=== PATIENT | female | born 1965 | race Caucasian/White ===

== ENCOUNTER 2016-07-19 11:00 | Outpatient (CLI) | payer MEDICAID | END 2016-07-19 11:01 | disposition home or self-care (01) | DX: Z79.899 Other long term (current) drug therapy (principal) ==

== ENCOUNTER 2016-08-26 15:43 | Outpatient (CLI) | payer MEDICAID | END 2016-08-26 15:44 | disposition home or self-care (01) | DX: S83.282A Other tear of lateral meniscus, current injury, left knee, initial encounter (principal); M17.11 Unilateral primary osteoarthritis, right knee; M25.462 Effusion, left knee ==

== ENCOUNTER 2016-11-03 09:24 | Day surgery (SDC) | payer MEDICAID ==
[2016-11-03] MEDS ORDERED: LACTATED RINGERS 1,000 ML IV ONE (09:32)
[2016-11-03] MEDS ORDERED: fentaNYL 250 MCG/5 ML VIAL IVP ONE (10:24)
[2016-11-03] MEDS ORDERED: MIDAZOLAM 2 MG/2 ML VIAL IVP ONE (10:24)
== END 2016-11-03 09:25 | disposition home or self-care (01) ==
PROC: 0DBN8ZX Excision of Sigmoid Colon, Via Natural or Artificial Opening Endoscopic, Diagnostic (ICD-10-PCS; 2016-11-03)
PROC: 0DBP8ZX Excision of Rectum, Via Natural or Artificial Opening Endoscopic, Diagnostic (ICD-10-PCS; principal; 2016-11-03 10:30)
DX: Z12.11 Encounter for screening for malignant neoplasm of colon (principal); D12.5 Benign neoplasm of sigmoid colon; D12.8 Benign neoplasm of rectum; K64.8 Other hemorrhoids; J45.909 Unspecified asthma, uncomplicated; M19.90 Unspecified osteoarthritis, unspecified site; K21.9 Gastro-esophageal reflux disease without esophagitis; F41.9 Anxiety disorder, unspecified; F17.210 Nicotine dependence, cigarettes, uncomplicated; G47.30 Sleep apnea, unspecified; Z81.1 Family history of alcohol abuse and dependence; Z81.8 Family history of other mental and behavioral disorders; Z83.3 Family history of diabetes mellitus; Z82.62 Family history of osteoporosis; Z82.3 Family history of stroke; Z82.49 Family history of ischemic heart disease and other diseases of the circulatory system
CPT/HCPCS: 45380; J3010; J7120

== ENCOUNTER 2017-02-14 08:53 | Outpatient (CLI) | payer MEDICAID | END 2017-02-14 08:54 | disposition home or self-care (01) | LOC: SC 08:53 | PROVIDERS: ATTEND Nurse Practitioner Family | DX: G47.33 Obstructive sleep apnea (adult) (pediatric) (principal); G47.00 Insomnia, unspecified | CPT/HCPCS: 99212; 99214 ==

== ENCOUNTER 2017-03-14 15:13 | Emergency (ER) | payer MEDICAID ==
[2017-03-14 15:23] VITALS: BP 148/96
--- NOTE | 2017-03-14 15:36 | ED Physician Documentation ---
PD HPI TRUNK INJURY - Stated complaint Stated Complaint: R RIB PX, SOA - Chief complaint Chief Complaint: General - History obtained from History obtained from: Patient - History of Present Illness Location: Right chest. No: Upper abdomen Type of injury: Fall (she says wooden stairs were wobbly and tilted as she went up them, causing her to fall to the right, about 3 feet onto chestwall. Denies injury to head/neck.) Timing - onset: Last night Timing - details: Abrupt onset, Still present Quality: Pain, Spasm, Sharp Improved by: Rest Worsened by: Moving, Palpating Associated symtptoms: No: Weakness, Numbness Contributing factors: No: Anticoagulated Similar symptoms before: Has not had sx before Recently seen: Not recently seen Review of Systems Cardiac: reports: Chest pain / pressure (in injured area.). denies: Palpitations Respiratory: reports: Dyspnea. denies: Cough Musculoskeletal: denies: Neck pain, Back pain Neurologic: reports: Other (she says she has had some balance problems the past few weeks.). 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 : None, Frequency HEENT: Other Psych: Depression, Anxiety, Panic attacks, Post traumatic stress disorder, Claustrophobia Musculoskeletal: Chronic back pain - Past Surgical History Past Surgical History: Yes Ortho: Spine surgery HEENT: Tonsil/Adenoidectomy - Present Medications Home Medications: Ambulatory Orders Medication Instructions Recorded Confirmed Albuterol [Ventolin Hfa] 1 puffs PO DAILY PRN 05/16/15 03/14/17 Fluticasone [Flonase] 1 sprays CLAUDE BID 05/16/15 03/14/17 Fluticasone/Salmeterol 250/50 1 puffs NS DAILY 05/16/15 03/14/17 [Advair 250 Mcg/50 Mcg] Omeprazole [PriLOSEC] 20 mg PO DAILY 05/16/15 03/14/17 Beclomethasone 40 Mcg [Qvar 40] 1 puffs PO DAILY PRN 11/02/16 03/14/17 Meloxicam [Mobic] 7.5 mg PO BID 11/02/16 03/14/17 Multivit with Calcium,Iron,Min 1 each PO DAILY 11/03/16 03/14/17 [Multiple Vitamins For Women] [place]-3S/Dha/Epa/Fish Oil [Fish 1 each PO DAILY 11/03/16 03/14/17 Oil 1,200 mg Softgel] HYDROcod/ACETAM 5/325 [[place] 5/325] 1 tab PO Q6H PRN #20 tablet 03/14/17 Magnesium 250 mg PO DAILY 03/14/17 03/14/17 Medical Mar[place]ana 03/14/17 Methocarbamol [Robaxin] 500 mg PO Q6H PRN #25 tablet 03/14/17 Quetiapine Fumarate [Seroquel] 0 mg PO DAILY 03/14/17 03/14/17 - Allergies Allergies/Adverse Reactions: Allergies Allergy/AdvReac Type Severity Reaction Status Date / Time amoxicillin trihydrate * Allergy Hives Verified 03/14/17 15:40 [From Augmentin] bupropion HCl * Allergy Hives Verified 03/14/17 15:40 [From Wellbutrin] carbamazepine [From Tegretol] Allergy Hives Verified 03/14/17 15:40 ciprofloxacin [From Cipro] Allergy Emesis Verified 03/14/17 15:40 ciprofloxacin HCl * Allergy Emesis Verified 03/14/17 15:40 [From Cipro] erythromycin base Allergy Hives Verified 03/14/17 15:40 minocycline HCl * Allergy Nausea Verified 03/14/17 15:40 [From Solodyn] potassium clavulanate * Allergy Hives Verified 03/14/17 15:40 [From Augmentin] - Social History Does the pt smoke?: Yes Smoking Status: Current every day smoker Does the pt drink ETOH?: Yes Does the pt have substance abuse?: No - Immunizations Immunizations are current?: Yes PD ED PE NORMAL - Vitals Vital signs reviewed: Yes - General General: Alert and oriented X 3, Well developed/nourished - HEENT HEENT: Atraumatic - Cardiac Cardiac: RRR, No murmur - Respiratory Respiratory: Clear bilaterally, Other (right lower chestwall tenderness midaxillary line without crepitance nor deformity. No noted bruising. ) - Abdomen Abdomen: Soft, Non tender - Back Back: No CVA TTP - Derm Derm: Normal color, Warm and dry - Neuro Neuro: Alert and oriented X 3, No motor deficit, Normal speech Results - Vitals Vitals: Vital Signs - 24 hr 03/14/17 15:17 Temperature 35.7 C L Heart Rate 91 Respiratory 18 Rate Blood Pressure 148/96 H O2 Saturation 97 Oxygen O2 Source Room air - Rads (name of study) ribs with lung Radiology: Prelim report reviewed, EMP read contemporaneously (no noted fractures) PD MEDICAL DECISION MAKING - ED course Complexity details: reviewed results, considered differential, d/w patient Departure - Departure Disposition: 01 Home, Self Care Clinical Impression: Fall from slip, trip, or stumble Qualifiers: Encounter type: initial encounter Qualified Code(s): W01.0XXA - Fall on same level from slipping, tripping and stumbling without subsequent striking against object, initial encounter Chest wall contusion Qualifiers: Encounter type: initial encounter Laterality: right Qualified Code(s): S20.211A - Contusion of right front wall of thorax, initial encounter Condition: Stable Record reviewed to determine appropriate education?: Yes Instructions: ED Contusion Chest Wall Follow-Up: Ayaka Anne ARNP [Primary Care Provider] - Prescriptions: HYDROcod/ACETAM 5/325 [[place] 5/325] 1 tab PO Q6H PRN #20 tablet PRN Reason: Pain Methocarbamol [Robaxin] 500 mg PO Q6H PRN #25 tablet PRN Reason: Spasms Comments: Continue usual medications. Activity as able based on comfort. Robaxin 3-4 times a day for muscle stiffness and spasms. Add Tylenol or hydrocodone as needed for pain. This presumably will decrease in pain over her several days to a week. There are no obvious rib fractures on x-ray although there can be a potential occult hairline fractures missed on plain films (about 2-5% in most studies). This would be treated in the same way but would take a little bit longer to heal. Discharge Date/Time: 03/14/17 17:51
[2017-03-14] MEDS ORDERED: oxyCOD/ACETAMIN 5 MG/325 MG TABLET PO STA (16:02)
[2017-03-14] MEDS ORDERED: oxyCOD/ACETAMIN 5 MG/325 MG TABLET PO ONE (16:20)
--- NOTE | 2017-03-14 16:57 | XRAY Preliminary Report ---
Exam: XR Ribs w/PA Chest RT IMPRESSION: No fracture or pneumothorax. [facility] SITE ID: [id number]
--- NOTE | 2017-03-14 17:00 | XRAY Report ---
EXAM: CHEST AND RIGHT RIB RADIOGRAPHY EXAM DATE: 03/14/2017 04:09 PM. CLINICAL HISTORY: Right rib pain COMPARISON: None. TECHNIQUE: 1 view of the chest and 2 views of the ribs. FINDINGS: Bones: Normal. No fracture or bone lesion. Lungs: No focal opacities. No pneumothorax. No pleural effusions. Mediastinum: Heart size is normal. Trachea is midline. Other: None. IMPRESSION: No fracture or pneumothorax. [facility] Referring Provider Line: [phone] SITE ID: [id number]
[2017-03-14] MEDS ORDERED: KETOROLAC 60 MG/2 ML VIAL IM STA (17:08)
[2017-03-14] MEDS ORDERED: diazePAM 5 MG TABLET PO STA (17:09)
[2017-03-14] MEDS ORDERED: KETOROLAC 30 MG/ML VIAL ONE (17:33)
[2017-03-14] MEDS ORDERED: diazePAM 5 MG TABLET PO ONE (17:33)
== END 2017-03-14 17:51 | disposition home or self-care (01) ==
LOC: ED 15:13
DX: S20.211A Contusion of right front wall of thorax, initial encounter (principal); W10.9XXA Fall (on) (from) unspecified stairs and steps, initial encounter; I10 Essential (primary) hypertension; F17.200 Nicotine dependence, unspecified, uncomplicated
CPT/HCPCS: 71101; 96372; 99282; 99283; A9270

== ENCOUNTER 2017-03-30 10:58 | Outpatient (CLI) | payer MEDICAID ==
--- NOTE | 2017-03-30 12:58 | XRAY Report ---
COMPLETE LUMBAR SPINE: 03/30/2017 CLINICAL INDICATION: Back pain. COMPARISON: 08/21/2006. FINDINGS: AP, lateral, oblique, and coned down views of the lumbar spine demonstrate mild degenerati ve changes. There is no evidence of fracture or subluxation. The bowel gas pattern is unremarkable. IMPRESSION: STABLE MILD DEGENERATIVE CHANGES. NO SIGNIFICANT INTERVAL CHANGE. JOB #: [id number] EXT JOB #:[id number]
== END 2017-03-30 10:59 | disposition home or self-care (01) ==
LOC: DI 10:58
PROVIDERS: ATTEND Nurse Practitioner Family
DX: M47.9 Spondylosis, unspecified (principal)
CPT/HCPCS: 72110

== ENCOUNTER 2017-05-28 11:36 | Emergency (ER) | payer MEDICAID ==
[2017-05-28 11:57] VITALS: BP 125/84
--- NOTE | 2017-05-28 12:37 | ED Physician Documentation ---
PD HPI HEENT - Stated complaint Stated Complaint: RT EAR PX - Chief complaint Chief Complaint: Heent - History obtained from History obtained from: Patient - History of Present Illness Timing - onset: How many months ago (2) Timing - duration: Months (2) Timing - details: Gradual onset, Still present (worse the past 2-3 days), Waxing and waning Location: Right ear Worsens: Swalllowing Associated symptoms: No: Fever, Facial swelling Recently seen: Clinic (Rx with cortisporin ear drops without improvement.) Review of Systems Constitutional: denies: Fever, Chills Eyes: denies: Loss of vision Ears: reports: Loss of hearing, Ear pain, Drainage/discharge. 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 : None, Frequency HEENT: Chronic vision loss, Chronic hearing loss, Other Psych: Depression, Anxiety, Panic attacks, Post traumatic stress disorder, Claustrophobia Musculoskeletal: Chronic back pain - Past Surgical History Past Surgical History: Yes General: Colonoscopy Ortho: Spine surgery HEENT: Myringotomy (tubes), Tonsil/Adenoidectomy - Present Medications Home Medications: Ambulatory Orders Medication Instructions Recorded Confirmed Albuterol [Ventolin Hfa] 1 puffs PO DAILY PRN 05/16/15 05/28/17 Fluticasone [Flonase] 1 sprays CLAUDE BID 05/16/15 05/28/17 Fluticasone/Salmeterol 250/50 1 puffs NS DAILY 05/16/15 05/28/17 [Advair 250 Mcg/50 Mcg] Omeprazole [PriLOSEC] 20 mg PO DAILY 05/16/15 05/28/17 Beclomethasone 40 Mcg [Qvar 40] 1 puffs PO DAILY PRN 11/02/16 05/28/17 Meloxicam [Mobic] 7.5 mg PO BID 11/02/16 05/28/17 Multivit with Calcium,Iron,Min 1 each PO DAILY 11/03/16 05/28/17 [Multiple Vitamins For Women] [place]-3S/Dha/Epa/Fish Oil [Fish 1 each PO DAILY 11/03/16 05/28/17 Oil 1,200 mg Softgel] Magnesium 250 mg PO DAILY 03/14/17 05/28/17 Medical Marjiu[place] 03/14/17 Methocarbamol [Robaxin] 500 mg PO Q6H PRN #25 tablet 03/14/17 05/28/17 Clotrimazole 3 drops RIGHTEAR QID #10 ml 05/28/17 Paliperidone [Invega] 1 tab PO DAILY 05/28/17 05/28/17 Sulfacetm Na/Prednisol AC 3 drops RIGHTEAR QID #1 bottle 05/28/17 [Blephamide Eye Drops] Sulfamethox/Trimeth 800/160 1 each PO BID #14 tablet 05/28/17 [Bactrim Ds 800/160] Tramadol HCl 50 mg PO Q6H PRN #15 tablet 05/28/17 - Allergies Allergies/Adverse Reactions: Allergies Allergy/AdvReac Type Severity Reaction Status Date / Time amoxicillin trihydrate * Allergy Hives Verified 05/28/17 11:58 [From Augmentin] bupropion HCl * Allergy Hives Verified 05/28/17 11:58 [From Wellbutrin] carbamazepine [From Tegretol] Allergy Hives Verified 05/28/17 11:58 ciprofloxacin [From Cipro] Allergy Emesis Verified 05/28/17 11:58 ciprofloxacin HCl * Allergy Emesis Verified 05/28/17 11:58 [From Cipro] erythromycin base Allergy Hives Verified 05/28/17 11:58 minocycline HCl * Allergy Nausea Verified 05/28/17 11:58 [From Solodyn] potassium clavulanate * Allergy Hives Verified 05/28/17 11:58 [From Augmentin] - Social History Does the pt smoke?: Yes Smoking Status: Current every day smoker Does the pt drink ETOH?: No Does the pt have substance abuse?: No - Immunizations Immunizations are current?: Yes - POLST Patient has POLST: No PD ED PE NORMAL - Vitals Vital signs reviewed: Yes - General General: Alert and oriented X 3, No acute distress, Well developed/nourished - HEENT HEENT: Moist mucous membranes, Pharynx benign. No: Ears normal (left is normal. Right shows redness and swelling of ear canal, and some to preauricular area. There is white exudate in canal. The TM appears okay. ) - Neck Neck: Supple, no meningeal sign, No adenopathy Results - Vitals Vitals: Oxygen O2 Source Room air PD MEDICAL DECISION MAKING - ED course Complexity details: considered differential, d/w patient Departure - Departure Disposition: 01 Home, Self Care Clinical Impression: Cellulitis of right ear canal Otitis externa Qualifiers: Otitis externa type: other infective Chronicity: acute Laterality: right Qualified Code(s): H60.391 - Other infective otitis externa, right ear Condition: Stable Record reviewed to determine appropriate education?: Yes Instructions: ED Otitis Externa Follow-Up: Ayaka Anne ARNP [Primary Care Provider] - Prescriptions: Clotrimazole 3 drops RIGHTEAR QID #10 ml Sulfacetm Na/Prednisol AC [Blephamide Eye Drops] 3 drops RIGHTEAR QID #1 bottle Sulfamethox/Trimeth 800/160 [Bactrim Ds 800/160] 1 each PO BID #14 tablet Tramadol HCl 50 mg PO Q6H PRN #15 tablet PRN Reason: Pain Comments: The ear canal does appear to have an infection to it. These can be bacterial and sometimes can be fungal. We will treated with a different antibiotic eardrop as well as an antifungal drops both 4 times a day for the next 4-5 days. The ear canal does have some redness and swelling that suggests some infection in the underlying tissue and so take Bactrim oral antibiotic twice a day for the next 5 days as well. Use Tylenol or ibuprofen if needed for pains. Add tramadol if needed for worse pain. Follow-up this coming with your primary care as planned to see how much better it is by that point. Discharge Date/Time: 05/28/17 13:07
[2017-05-28] MEDS ORDERED: SULFAMETH/TRIMETH DS 800/160 MG TABLET PO STA (12:48)
[2017-05-28] MEDS ORDERED: traMADol 50 MG TABLET PO STA (12:48)
[2017-05-28] MEDS ORDERED: traMADol 50 MG TABLET PO ONE (12:59)
[2017-05-28] MEDS ORDERED: SULFAMETH/TRIMETH DS 800/160 MG TABLET PO ONE (13:00)
== END 2017-05-28 13:07 | disposition home or self-care (01) ==
LOC: ED 11:36
DX: H60.391 Other infective otitis externa, right ear (principal); I10 Essential (primary) hypertension; F17.200 Nicotine dependence, unspecified, uncomplicated
CPT/HCPCS: 99283; A9270

== ENCOUNTER 2017-07-12 08:00 | Outpatient (CLI) | payer MEDICAID ==
[2017-07-12 13:49] LABS: BASOPHILS % (AUTO) 0.8 %; EOSINOPHILS # (AUTO) 0.2 10^3/uL (0.0-0.7); EOSINOPHILS % (AUTO) 2.4 %; HCT - HEMATOCRIT 39.6 % (37.0-47.0); HGB - HEMOGLOBIN 13.4 g/dL (12.0-16.0); LYMPHOCYTES # (AUTO) 2.4 10^3/uL (1.5-3.5); LYMPHOCYTES % (AUTO) 38.1 %; MEAN CORPUSCULAR HEMOGLOBIN 31.3 pg (27.0-31.0); MEAN CORPUSCULAR HGB CONC 33.8 g/dL (32.0-36.0); MEAN CORPUSCULAR VOLUME 92.5 fL (81.0-99.0); MONOCYTES # (AUTO) 0.4 10^3/uL (0.0-1.0); NEUTROPHILS # (AUTO) 3.2 10^3/uL (1.5-6.6); NEUTROPHILS % (AUTO) 51.7 %; NUCLEATED RED BLOOD CELLS AUTO 0.1 /100WBC; RED BLOOD COUNT 4.28 10^6/uL (4.20-5.40); RED CELL DISTRIBUTION WIDTH 14.1 % (12.0-15.0); UNCORRECTED WHITE BLOOD COUNT 6.3 x10^3/uL; WHITE BLOOD COUNT 6.3 x10^3/uL (4.8-10.8)
[2017-07-12 14:14] LABS: ALBUMIN/GLOBULIN RATIO 1.3 (1.0-2.2); BILIRUBIN,TOTAL 0.5 mg/dL (0.2-1.0); CALCIUM 9.1 mg/dL (8.5-10.3); CREATININE 0.6 mg/dL (0.4-1.0); POTASSIUM 4.1 mmol/L (3.5-5.0); TOTAL PROTEIN 6.4 g/dL (6.7-8.2)
== END 2017-07-12 08:01 | disposition home or self-care (01) ==
LOC: LAB.N 08:00
PROVIDERS: ATTEND Nurse Practitioner Psychiatric/Mental Health
DX: F31.9 Bipolar disorder, unspecified (principal); F43.10 Post-traumatic stress disorder, unspecified
CPT/HCPCS: 36415; 80053; 84443; 85025

== ENCOUNTER 2017-08-16 08:59 | Outpatient (CLI) | payer MEDICAID ==
--- NOTE | 2017-08-17 16:06 | Mammography Report ---
DATE OF SERVICE: 08/16/2017 DIGITAL SCREENING MAMMOGRAM: 08/16/2017 CLINICAL INDICATION: A 52-year-old nulliparous patient for screening. COMPARISON: 03/2014, 07/2009. TECHNIQUE: Routine CC and MLO projections were obtained of the breasts. FINDINGS: The breasts demonstrate heterogeneously dense fibroglandular parenchyma bilaterally. In the left slightly lower outer central breast, there is a possible developing density. Further evaluation with spot compression views and possible ultrasound is recommended. No mammographically suspicious findings are appreciated in the right breast. IMPRESSION: INCOMPLETE EXAMINATION. RECOMMENDATION: Additional evaluation of the left breast as above. BIRADS CATEGORY 0 - INCOMPLETE. STANDARD QUALIFYING STATEMENTS: 1. This examination was reviewed with the aid of Computer-Aided Detection (CAD). 2. A negative or benign imaging report should not delay biopsy if clinically suspicious findings are present. Consider surgical consultation if warranted. More than 5% of cancers are not identified by imaging. 3. Dense breasts may obscure an underlying neoplasm. TD: 08/17/2017 16:04
== END 2017-08-16 09:00 | disposition home or self-care (01) ==
LOC: DI 08:59
PROVIDERS: ATTEND Family Medicine
DX: Z12.31 Encounter for screening mammogram for malignant neoplasm of breast (principal); R92.8 Other abnormal and inconclusive findings on diagnostic imaging of breast
CPT/HCPCS: 77067

== ENCOUNTER 2017-08-16 09:19 | Outpatient (CLI) | payer MEDICAID | END 2017-08-16 09:20 | disposition home or self-care (01) | LOC: RT 09:19 | PROVIDERS: ATTEND Nurse Practitioner Psychiatric/Mental Health | DX: F90.2 Attention-deficit hyperactivity disorder, combined type (principal) | CPT/HCPCS: 93005 ==

== ENCOUNTER 2017-09-07 09:59 | Outpatient (CLI) | payer MEDICAID ==
--- NOTE | 2017-09-07 12:03 | Mammography Report ---
DIAGNOSTIC LEFT MAMMOGRAM: 09/07/2017 CLINICAL INDICATION: Possible developing density left breast. TECHNIQUE: Left true lateral and spot compression views. COMPARISON: 08/16/2017, 04/07/2014, 07/24/2009. FINDINGS: The left breast again demonstrates heterogeneously dense fibroglandular parenchyma. The questioned density, in the left slightly lower outer central breast, dissipates evenly on additional compression. No underlying mass lesion or architectural distortion is seen. A few punctate, typically benign calcifications are present. IMPRESSION: BENIGN FINDINGS. RECOMMENDATION: Routine annual screening unless otherwise clinically indicated. BIRADS CATEGORY 2 - Benign findings. STANDARD QUALIFYING STATEMENTS: 1. This examination was reviewed with the aid of Computer-Aided Detection (CAD). 2. A negative or benign imaging report should not delay biopsy if clinically suspicious findings are present. Consider surgical consultation if warranted. More than 5% of cancers are not identified by imaging. 3. Dense breasts may obscure an underlying neoplasm. TD: 09/07/2017 12:01
== END 2017-09-07 10:00 | disposition home or self-care (01) ==
LOC: DI 09:59
PROVIDERS: ATTEND Family Medicine
DX: R92.8 Other abnormal and inconclusive findings on diagnostic imaging of breast (principal)

== ENCOUNTER 2018-01-24 08:00 | Outpatient (CLI) | payer MEDICAID ==
[2018-01-24 12:45] LABS: BASOPHILS % (AUTO) 0.7 %; EOSINOPHILS # (AUTO) 0.1 10^3/uL (0.0-0.7); EOSINOPHILS % (AUTO) 1.3 %; LYMPHOCYTES # (AUTO) 1.8 10^3/uL (1.5-3.5); LYMPHOCYTES % (AUTO) 28.4 %; MEAN CORPUSCULAR HEMOGLOBIN 30.9 pg (27.0-31.0); MEAN CORPUSCULAR HGB CONC 33.3 g/dL (32.0-36.0); MEAN CORPUSCULAR VOLUME 92.7 fL (81.0-99.0); MEAN PLATELET VOLUME 9.2 fL (7.9-10.8); MONOCYTES # (AUTO) 0.4 10^3/uL (0.0-1.0); MONOCYTES % (AUTO) 6.4 %; NEUTROPHILS % (AUTO) 63.2 %; PLT - PLATELET COUNT 231 10^3/uL (130-450); RED BLOOD COUNT 4.54 10^6/uL (4.20-5.40); RED CELL DISTRIBUTION WIDTH 14.2 % (12.0-15.0); WHITE BLOOD COUNT 6.4 x10^3/uL (4.8-10.8)
[2018-01-24 13:01] LABS: ALBUMIN 3.9 g/dL (3.2-5.5); ALBUMIN/GLOBULIN RATIO 1.2 (1.0-2.2); ALKALINE PHOSPHATASE 60 IU/L (42-121); ALT ALANINE AMINOTRANSFERASE 20 IU/L (10-60); AST ASPARTATE AMINOTRANSFERASE 20 IU/L (10-42); BILIRUBIN,TOTAL 0.6 mg/dL (0.2-1.0); BUN - BLOOD UREA NITROGEN 13 mg/dL (6-20); CALCIUM 9.2 mg/dL (8.5-10.3); CARBON DIOXIDE - CO2 27 mmol/L (21-32); CHLORIDE 102 mmol/L (101-111); CHOL/HDL RATIO 2.8 (<4.4); CHOLESTEROL 182 mg/dL; CREATININE 0.7 mg/dL (0.4-1.0); GFR - MDRD 88 (>89); GLUCOSE 93 mg/dL (70-100); HDL CHOLESTEROL 66 mg/dL; LDL CHOLESTEROL,CALCULATED 103 mg/dL; LDL/HDL RATIO 1.6 (<4.4); SODIUM 137 mmol/L (135-145); TOTAL PROTEIN 7.1 g/dL (6.7-8.2); VLDL CHOLESTEROL 13 mg/dL
[2018-01-24 13:12] LABS: THYROID STIMULATING HORMONE 2.16 uIU/mL (0.34-5.60)
[2018-01-24 13:14] LABS: FREE T4 (FREE THYROXINE) 1.13 ng/dL (0.58-1.64)
== END 2018-01-24 08:01 | disposition home or self-care (01) ==
LOC: LAB.N 08:00
PROVIDERS: ATTEND Family Medicine
DX: Z51.81 Encounter for therapeutic drug level monitoring (principal); E03.9 Hypothyroidism, unspecified; F41.9 Anxiety disorder, unspecified; F32.9 Major depressive disorder, single episode, unspecified; I10 Essential (primary) hypertension; E66.01 Morbid (severe) obesity due to excess calories; M20.12 Hallux valgus (acquired), left foot; M20.11 Hallux valgus (acquired), right foot; M21.42 Flat foot [pes planus] (acquired), left foot; M21.41 Flat foot [pes planus] (acquired), right foot; M19.072 Primary osteoarthritis, left ankle and foot; M19.071 Primary osteoarthritis, right ankle and foot
CPT/HCPCS: 36415; 80053; 80061; 83721; 84439; 84443; 84481; 85025

== ENCOUNTER 2018-01-24 08:45 | Outpatient (CLI) | payer MEDICAID ==
--- NOTE | 2018-01-24 10:27 | XRAY Report ---
Procedure Date: 01/24/2018 Accession Number: [id number] / [id number] Procedure: XRN - Foot 3 View BILAT CPT Code: FULL RESULT: EXAM: Foot 3 View BILAT DATE: 01/24/2018 9:09 AM CLINICAL HISTORY: L R FOOT PAIN COMPARISON: None. TECHNIQUE: 3 views each foot. FINDINGS: RIGHT: Bones: No evidence of fracture. Plantar and posterior calcaneal spurring. Joints: Pes planus. Hallux valgus, with osteoarthritis. Soft Tissues: Normal. No soft tissue swelling. LEFT: Bones: No evidence of fracture. Plantar and posterior calcaneal spurring. Joints: Pes planus. Hallux valgus, with osteoarthritis. Soft Tissues: Normal. No soft tissue swelling. IMPRESSION: Bilateral pes planus and hallux valgus, with osteoarthritis. [facility]
== END 2018-01-24 08:46 | disposition home or self-care (01) ==
LOC: DI.N 08:45
PROVIDERS: ATTEND Family Medicine
DX: M20.12 Hallux valgus (acquired), left foot (principal); M20.11 Hallux valgus (acquired), right foot; M21.42 Flat foot [pes planus] (acquired), left foot; M21.41 Flat foot [pes planus] (acquired), right foot; M19.072 Primary osteoarthritis, left ankle and foot; M19.071 Primary osteoarthritis, right ankle and foot

== ENCOUNTER 2018-06-12 10:53 | Outpatient (CLI) | payer MEDICAID | END 2018-06-12 10:54 | disposition home or self-care (01) | LOC: SC 10:53 | PROVIDERS: ATTEND Nurse Practitioner Family | DX: G47.33 Obstructive sleep apnea (adult) (pediatric) (principal) | CPT/HCPCS: 99212; 99214 ==

== ENCOUNTER 2018-07-26 17:53 | Emergency (ER) | payer MEDICAID, MEDICARE ==
--- NOTE | 2018-07-26 19:19 | ED Physician Documentation ---
PD HPI SKIN - Stated complaint Stated Complaint: HAND ISSUES - Chief complaint Chief Complaint: Ext Problem - History obtained from History obtained from: Patient - History of Present Illness Timing - onset: How many weeks ago (1) Timing - duration: Weeks (1) Timing - details: Gradual onset, Still present, Waxing and waning Location: RUE, LUE Quality / character: Painful, Burning (She says she has had redness and swelling of both hands and forearms for the past week with waxing and waning degrees of pain and burning. She states is worse today. She is not aware of any contact irritants. She has had a little bit of pain in the neck area. She has not had any fever. She denies upper respiratory infection symptoms. She denies any symptoms in her legs. There was not any noted injury.), Discolored (red). No: Itchy Associated symptoms: Myalgias. No: Fever, Facial swelling, Dyspnea, N/V/D Contributing factors: No: Exposed to medication, Exposed to soap / lotion, Recent illness Similar symptoms before: Has not had sx before Recently seen: Not recently seen Review of Systems Constitutional: reports: Myalgias. denies: Fever, Chills Nose: denies: Rhinorrhea / runny nose, Congestion Throat: denies: Sore throat Respiratory: denies: Cough GI: denies: Abdominal Pain, Nausea, Vomiting Skin: denies: Lesions Musculoskeletal: reports: Neck pain, Extremity pain. 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, Frequency HEENT: Chronic vision loss, Chronic hearing loss, Other Psych: Depression, Anxiety, Panic attacks, Post traumatic stress disorder, Claustrophobia Musculoskeletal: Chronic back pain - Past Surgical History Past Surgical History: Yes General: Colonoscopy Ortho: Spine surgery HEENT: Myringotomy (tubes), Tonsil/Adenoidectomy - Present Medications Home Medications: Ambulatory Orders Medication Instructions Recorded Confirmed Albuterol [Ventolin Hfa] 1 puffs PO DAILY PRN 05/16/15 05/28/17 Fluticasone [Flonase] 1 sprays CLAUDE BID 05/16/15 05/28/17 Fluticasone/Salmeterol 250/50 1 puffs NS DAILY 05/16/15 05/28/17 [Advair 250 Mcg/50 Mcg] Omeprazole [PriLOSEC] 20 mg PO DAILY 05/16/15 05/28/17 Beclomethasone 40 Mcg [Qvar 40] 1 puffs PO DAILY PRN 11/02/16 05/28/17 Meloxicam [Mobic] 7.5 mg PO BID 11/02/16 05/28/17 Multivit with Calcium,Iron,Min 1 each PO DAILY 11/03/16 05/28/17 [Multiple Vitamins For Women] [place]-3S/Dha/Epa/Fish Oil [Fish 1 each PO DAILY 11/03/16 05/28/17 Oil 1,200 mg Softgel] Magnesium 250 mg PO DAILY 03/14/17 05/28/17 Medical Marjiuana 03/14/17 Methocarbamol [Robaxin] 500 mg PO Q6H PRN #25 tablet 03/14/17 05/28/17 Clotrimazole 3 drops RIGHTEAR QID #10 ml 05/28/17 Paliperidone [Invega] 1 tab PO DAILY 05/28/17 05/28/17 Sulfacetm Na/Prednisol AC 3 drops RIGHTEAR QID #1 bottle 05/28/17 [Blephamide Eye Drops] Sulfamethox/Trimeth 800/160 1 each PO BID #14 tablet 05/28/17 [Bactrim Ds 800/160] Tramadol HCl 50 mg PO Q6H PRN #15 tablet 05/28/17 Dexamethasone [Decadron] 4 mg PO DAILY #6 tablet 07/26/18 Methocarbamol [Robaxin] 750 mg PO Q6H PRN #25 tablet 07/26/18 Oxycodone HCl 1 - 2 tab PO Q8HR PRN #25 tablet 07/26/18 - Allergies Allergies/Adverse Reactions: Allergies Allergy/AdvReac Type Severity Reaction Status Date / Time amoxicillin trihydrate * Allergy Hives Verified 05/28/17 11:58 [From Augmentin] bupropion HCl * Allergy Hives Verified 05/28/17 11:58 [From Wellbutrin] carbamazepine [From Tegretol] Allergy Hives Verified 05/28/17 11:58 ciprofloxacin [From Cipro] Allergy Emesis Verified 05/28/17 11:58 ciprofloxacin HCl * Allergy Emesis Verified 05/28/17 11:58 [From Cipro] erythromycin base Allergy Hives Verified 05/28/17 11:58 minocycline HCl * Allergy Nausea Verified 05/28/17 11:58 [From Solodyn] potassium clavulanate * Allergy Hives Verified 05/28/17 11:58 [From Augmentin] [place]ak Allergy Unknown Uncoded 07/26/18 18:23 - Social History Does the pt smoke?: Yes Smoking Status: Current every day smoker Does the pt drink ETOH?: No Does the pt have substance abuse?: No - Immunizations Immunizations are current?: Yes - POLST Patient has POLST: No PD ED PE NORMAL - Vitals Vital signs reviewed: Yes - General General: Alert and oriented X 3, Well developed/nourished, Other (anxious and seems in pain) - HEENT HEENT: Pharynx benign - Neck Neck: Supple, no meningeal sign, No bony TTP, No adenopathy - Cardiac Cardiac: RRR, No murmur - Respiratory Respiratory: Clear bilaterally - Abdomen Abdomen: Soft, Non tender - Derm Derm: Normal color, Warm and dry, No rash - Extremities Extremities: No edema, Other (Both hands have tenderness generally. There is tenderness in both wrists with some volar tenderness to tapping and range of motion of the wrists. I do not see any redness. There is no pitting edema noted. There is good pulses at both wrists as well as color and capillary refill in the fingertips. She states she has less sensation to touch in the whole hand and fingers including the thumbs. There is some tenderness in both forearms. There is no noted rash.) - Neuro Neuro: Alert and oriented X 3, No motor deficit, Normal speech Results - Vitals Vitals: Oxygen O2 Source Room air - Labs Labs: Laboratory Tests 07/26/18 07/26/18 07/26/18 19:56 19:56 19:56 WBC 6.5 RBC 4.64 Hgb 13.9 Hct 42.7 MCV 92.0 MCH 29.9 MCHC 32.5 RDW 13.7 Plt Count 287 MPV 7.9 Neut # (Auto) 4.1 Lymph # (Auto) 1.7 [place] # (Auto) 0.5 Eos # (Auto) 0.1 Baso # (Auto) 0.1 Absolute Nucleated RBC 0.01 Nucleated RBC % 0.1 ESR 25 Sodium 136 Potassium 3.6 Chloride 101 Carbon Dioxide 26 Anion Gap 9.0 BUN 10 Creatinine 0.6 Estimated GFR (MDRD) 105 Glucose 101 H Calcium 9.0 Total Bilirubin 0.5 AST 34 ALT 38 Alkaline Phosphatase 63 Total Protein 6.7 Albumin 4.0 Globulin 2.7 Albumin/Globulin Ratio 1.5 Lipase 28 - Rads (name of study) wrists bilat Radiology: Prelim report reviewed (no bony process), EMP read contemporaneously, See rad report PD MEDICAL DECISION MAKING - ED course Complexity details: reviewed results (The white count and inflammatory markers are normal with a sed rate of 25. She is afebrile. Consider the possibility of some nerve irritation. She does not have any leg pains and so does not seem like a diffuse myositis.), considered differential (I do not see an obvious rash per se. She says both hands feel swollen there is no real pitting edema. She has good color pulses and capillary refill. She complains of numbness diffusely in both hands and not just in a carpal tunnel distribution. She does have tenderness in both wrists that could be consistent with carpal tunnel area. She is anxious and distraught because of the discomfort. There is no obvious neck tenderness. I do not see any rash on the neck shoulders or arms.), d/w patient Departure - Departure Disposition: 01 Home, Self Care Clinical Impression: Bilateral hand pain Condition: Stable Record reviewed to determine appropriate education?: Yes Instructions: ED Neuropathy Peripheral Follow-Up: Sunitha Mcfarlane DO [Primary Care Provider] - Prescriptions: Oxycodone HCl 1 - 2 tab PO Q8HR PRN #25 tablet PRN Reason: Pain Dexamethasone [Decadron] 4 mg PO DAILY #6 tablet Methocarbamol [Robaxin] 750 mg PO Q6H PRN #25 tablet PRN Reason: Spasms Comments: Continue your current medications. Add dexamethasone steroid anti-inflammatory daily for 6 more days. Methocarbamol every 6 hours to 8 hours if needed for spasms and stiffness. Add Tylenol or oxycodone every 6 hours if needed for pain. Follow-up with your primary care over the next several days or early next week, call for an appointment. Return if other symptoms develop.Your basic blood tests are looking good. It does not look vascular as there is good color and pulses. I presume there is some nerve pain irritation and will try treating that with the anti-inflammatory and muscle relaxants and pain medicine. Discharge Date/Time: 07/26/18 22:38
[2018-07-26] MEDS ORDERED: DEXAMETHASONE 10 MG/ML VIAL PO STA (19:45)
[2018-07-26] MEDS ORDERED: oxyCODONE 5 MG TABLET PO STA (19:45)
[2018-07-26] MEDS ORDERED: diazePAM 5 MG TABLET PO STA (19:46)
[2018-07-26 20:00] LABS: BASOPHILS # (AUTO) 0.1 10^3/uL (0.0-0.1); BASOPHILS % (AUTO) 1.3 %; EOSINOPHILS # (AUTO) 0.1 10^3/uL (0.0-0.7); EOSINOPHILS % (AUTO) 1.9 %; HGB - HEMOGLOBIN 13.9 g/dL (12.0-16.0); LYMPHOCYTES # (AUTO) 1.7 10^3/uL (1.5-3.5); LYMPHOCYTES % (AUTO) 26.8 %; MEAN CORPUSCULAR HEMOGLOBIN 29.9 pg (27.0-31.0); MEAN CORPUSCULAR HGB CONC 32.5 g/dL (32.0-36.0); MEAN PLATELET VOLUME 7.9 fL (7.9-10.8); MONOCYTES # (AUTO) 0.5 10^3/uL (0.0-1.0); MONOCYTES % (AUTO) 7.5 %; NEUTROPHILS # (AUTO) 4.1 10^3/uL (1.5-6.6); NEUTROPHILS % (AUTO) 62.5 %; PLT - PLATELET COUNT 287 10^3/uL (130-450); RED BLOOD COUNT 4.64 10^6/uL (4.20-5.40); RED CELL DISTRIBUTION WIDTH 13.7 % (12.0-15.0); WHITE BLOOD COUNT 6.5 x10^3/uL (4.8-10.8)
[2018-07-26 20:13] LABS: BILIRUBIN,TOTAL 0.5 mg/dL (0.2-1.0); CREATININE 0.6 mg/dL (0.4-1.0); TOTAL PROTEIN 6.7 g/dL (6.7-8.2)
--- NOTE | 2018-07-26 20:34 | XRAY Report ---
Reason: both wrists/hands hurting - fall Procedure Date: 07/26/2018 Accession Number: [id number] / [id number] Procedure: XR - Wrist 3 View BILAT CPT Code: FULL RESULT: EXAMS: 1. RIGHT WRIST RADIOGRAPHY 2. LEFT WRIST RADIOGRAPHY EXAM DATE: 07/26/2018 07:51 PM. CLINICAL HISTORY: Both wrists/hands hurting after fall one week ago, right worse than left. COMPARISON: HAND 3 VIEW RT 05/16/2015 4:00 PM. TECHNIQUE: 3 views each wrist. FINDINGS: Right: Bones: No acute traumatic or destructive bony abnormality. Simple bone cyst in the distal scaphoid. Joints: Severe sclerosis, spurring, and loss of joint space with subluxation at the first CMC joint. Otherwise alignment and joint space is maintained Soft Tissues: Unremarkable. Left: Bones: Normal. No fractures or bone lesions. Joints: Advanced sclerosis, spurring, and loss of joint space at the first CMC joint. Otherwise alignment and joint space is maintained. Soft Tissues: Unremarkable. IMPRESSION: 1. No acute bony abnormality. 2. Advanced osteoarthritis at the first CMC joint, right worse than left. RADIA
[2018-07-26 20:38] LABS: ALBUMIN/GLOBULIN RATIO 1.5 (1.0-2.2)
[2018-07-26] MEDS ORDERED: HYDROmorphone 1 MG/ML CARPUJECT IM STA (21:43)
[2018-07-26] MEDS ORDERED: oxyCODONE/ACET 5/325 Prepack 4 PO STA (21:44)
[2018-07-26 22:21] VITALS: BP 112/80
== END 2018-07-26 22:38 | disposition home or self-care (01) ==
LOC: ED 17:53
DX: M79.642 Pain in left hand (principal); M79.641 Pain in right hand; I10 Essential (primary) hypertension; F17.200 Nicotine dependence, unspecified, uncomplicated
CPT/HCPCS: 36415; 73110; 80053; 83690; 85025; 85651; 99283; A9270; J1170

== ENCOUNTER 2018-08-16 08:16 | Outpatient (CLI) | payer MEDICARE | END 2018-08-16 08:17 | disposition home or self-care (01) | LOC: SC 08:16 | PROVIDERS: ATTEND Nurse Practitioner Family | DX: G47.33 Obstructive sleep apnea (adult) (pediatric) (principal) | CPT/HCPCS: 99214; G0463; 99212 ==

== ENCOUNTER 2018-10-06 08:47 | Emergency (ER) | payer MEDICARE, MEDICAID ==
[2018-10-06 09:08] VITALS: BP 120/79
[2018-10-06] MEDS ORDERED: cephALEXin 250 MG CAPSULE PO STA (10:24)
--- NOTE | 2018-10-06 10:26 | ED Physician Documentation ---
History of Present Illness - Stated complaint Stated Complaint: LEFT EAR PX - Chief complaint Chief Complaint: General - Additonal information Additional information: 53-year-old female presents the emergency department with complaints of left ear pain and decreased hearing for the past 4 days. The patient reports nasal congestion. No relieving factors. No other associated symptoms. The patient denies headache or neck pain or throat pain Review of Systems Constitutional: reports: Fatigue. denies: Fever Eyes: denies: Discharge Ears: reports: Ear pain Nose: reports: Congestion Throat: denies: Sore throat Cardiac: denies: Chest pain / pressure Respiratory: denies: Cough GI: denies: Abdominal Pain : denies: Dysuria Skin: denies: Rash Musculoskeletal: denies: Neck pain Neurologic: denies: Headache PD PAST MEDICAL HISTORY - Past Medical History Past Medical History: Yes Cardiovascular: Hypertension Respiratory: Asthma, Sleep apnea, CPAP use Endocrine/Autoimmune: None GI: GERD CASE MANAGEMENT SPECIALIST: None : None, Frequency HEENT: Chronic vision loss, Chronic hearing loss, Other Psych: Depression, Anxiety, Panic attacks, Post traumatic stress disorder, Claustrophobia Musculoskeletal: Chronic back pain - Past Surgical History Past Surgical History: Yes General: Colonoscopy Ortho: Spine surgery HEENT: Myringotomy (tubes), Tonsil/Adenoidectomy - Present Medications Home Medications: Ambulatory Orders Medication Instructions Recorded Confirmed Albuterol [Ventolin Hfa] 1 puffs PO DAILY PRN 05/16/15 05/28/17 Fluticasone [Flonase] 1 sprays CLAUDE BID 05/16/15 05/28/17 Fluticasone/Salmeterol 250/50 1 puffs NS DAILY 05/16/15 05/28/17 [Advair 250 Mcg/50 Mcg] Omeprazole [PriLOSEC] 20 mg PO DAILY 05/16/15 05/28/17 Beclomethasone 40 Mcg [Qvar 40] 1 puffs PO DAILY PRN 11/02/16 05/28/17 Meloxicam [Mobic] 7.5 mg PO BID 11/02/16 05/28/17 Multivit with Calcium,Iron,Min 1 each PO DAILY 11/03/16 05/28/17 [Multiple Vitamins For Women] [place]-3S/Dha/Epa/Fish Oil [Fish 1 each PO DAILY 11/03/16 05/28/17 Oil 1,200 mg Softgel] Magnesium 250 mg PO DAILY 03/14/17 05/28/17 Medical Marjiuana 03/14/17 Methocarbamol [Robaxin] 500 mg PO Q6H PRN #25 tablet 03/14/17 05/28/17 Clotrimazole 3 drops RIGHTEAR QID #10 ml 05/28/17 Paliperidone [Invega] 1 tab PO DAILY 05/28/17 05/28/17 Sulfacetm Na/Prednisol AC 3 drops RIGHTEAR QID #1 bottle 05/28/17 [Blephamide Eye Drops] Sulfamethox/Trimeth 800/160 1 each PO BID #14 tablet 05/28/17 [Bactrim Ds 800/160] Tramadol HCl 50 mg PO Q6H PRN #15 tablet 05/28/17 Dexamethasone [Decadron] 4 mg PO DAILY #6 tablet 07/26/18 Methocarbamol [Robaxin] 750 mg PO Q6H PRN #25 tablet 07/26/18 Oxycodone HCl 1 - 2 tab PO Q8HR PRN #25 tablet 07/26/18 Cephalexin [Keflex] 500 mg PO Q6H #28 capsule 10/06/18 Ciproflox/Dexameth Otic Drops 4 drops OT BID #1 bottle 10/06/18 [Ciprodex] - Allergies Allergies/Adverse Reactions: Allergies Allergy/AdvReac Type Severity Reaction Status Date / Time amoxicillin trihydrate * Allergy Hives Verified 05/28/17 11:58 [From Augmentin] bupropion HCl * Allergy Hives Verified 05/28/17 11:58 [From Wellbutrin] carbamazepine [From Tegretol] Allergy Hives Verified 05/28/17 11:58 ciprofloxacin [From Cipro] Allergy Emesis Verified 05/28/17 11:58 ciprofloxacin HCl * Allergy Emesis Verified 05/28/17 11:58 [From Cipro] erythromycin base Allergy Hives Verified 05/28/17 11:58 minocycline HCl * Allergy Nausea Verified 05/28/17 11:58 [From Solodyn] potassium clavulanate * Allergy Hives Verified 05/28/17 11:58 [From Augmentin] soldak Allergy Unknown Uncoded 07/26/18 18:23 - Social History Does the pt smoke?: Yes Smoking Status: Current every day smoker Does the pt drink ETOH?: No Does the pt have substance abuse?: No - Immunizations Immunizations are current?: Yes - POLST Patient has POLST: No PD ED PE NORMAL - General General: Alert and oriented X 3, No acute distress - HEENT HEENT: Atraumatic, PERRL, EOMI, Pharynx benign, Other (The right ear is unremarkable, the left ear the external canal is red and inflamed, the left middle ear has effusion with associated erythematous changes of the tympanic membrane. No evidence of rupture. The patient has no tenderness or swelling of the mastoid) - Cardiac Cardiac: RRR - Respiratory Respiratory: No respiratory distress - Derm Derm: Normal color - Extremities Extremities: No deformity - Neuro Neuro: Alert and oriented X 3, Normal speech Results - Vitals Vitals: Vital Signs - 24 hr 10/06/18 09:05 Temperature 36.6 C Heart Rate 100 Respiratory 16 Rate Blood Pressure 120/79 O2 Saturation 96 Oxygen O2 Source Room air PD MEDICAL DECISION MAKING - ED course ED course: Well-appearing, nontoxic and well-hydrated individual who be treated as an outpatient for any acute ear infection. The patient will follow up with primary care for recheck and reevaluation. The patient will return to the emergency department for any worsening or any concerns Departure - Departure Disposition: 01 Home, Self Care Clinical Impression: Recurrent AOM (acute otitis media) Otitis externa Qualifiers: Otitis externa type: unspecified type Chronicity: unspecified Laterality: unspecified laterality Qualified Code(s): H60.90 - Unspecified otitis externa, unspecified ear Condition: Good Instructions: ED Otitis Externa Ch, ED Otitis Media Acute Ch Follow-Up: Eran De Anda MD [Primary Care Provider] - Within 1 week Prescriptions: Cephalexin [Keflex] 500 mg PO Q6H #28 capsule Ciproflox/Dexameth Otic Drops [Ciprodex] 4 drops OT BID #1 bottle Comments: Please return for worsening symptoms or any concerns
== END 2018-10-06 10:37 | disposition home or self-care (01) ==
LOC: ED 08:47
DX: H66.002 Acute suppurative otitis media without spontaneous rupture of ear drum, left ear (principal); I10 Essential (primary) hypertension; F17.200 Nicotine dependence, unspecified, uncomplicated
CPT/HCPCS: 99283; A9270

== ENCOUNTER 2018-10-11 12:44 | Outpatient (CLI) | payer MEDICARE, MEDICAID | END 2018-10-11 12:45 | disposition home or self-care (01) | LOC: SC 12:44 | PROVIDERS: ATTEND Nurse Practitioner Family | DX: G47.33 Obstructive sleep apnea (adult) (pediatric) (principal) | CPT/HCPCS: 99214; G0463; 99212 ==

== ENCOUNTER 2018-11-14 10:19 | Outpatient (CLI) | payer MEDICARE, MEDICAID | END 2018-11-14 10:20 | disposition home or self-care (01) | LOC: SC 10:19 | PROVIDERS: ATTEND Nurse Practitioner Family | DX: G47.33 Obstructive sleep apnea (adult) (pediatric) (principal) | CPT/HCPCS: 99214; G0463; 99212 ==

== ENCOUNTER 2019-02-01 18:07 | Emergency (ER) | payer MEDICARE, MEDICAID ==
--- NOTE | 2019-02-01 18:18 | ED Physician Documentation ---
History of Present Illness - Stated complaint Stated Complaint: RT LEG PX - Chief complaint Chief Complaint: Ext Problem - History obtained from History obtained from: Patient - Additonal information Additional information: Patient is a 53-year-old female with history of chronic pain presenting with right leg concerns after mechanical fall about 1 week ago. Patient reports that she tripped with her right foot causing her to fall, but she caught herself. Patient denies actually hitting her leg onto the ground or suffering other injury. Patient is unsure if she twisted her knee. Patient reports diffuse right leg pain, but worse in the knee, particularly posterior to the knee. She also reports swelling without skin changes.She denies any changes to sensation at baseline, but admits to decreased strength and range of motion. No other improving or worsening factors noted. Review of Systems Musculoskeletal: reports: Extremity pain Neurologic: reports: Generalized weakness. denies: Numbness PD PAST MEDICAL HISTORY - Past Medical History Cardiovascular: Hypertension Respiratory: Asthma, Sleep apnea, CPAP use Endocrine/Autoimmune: None GI: GERD NEUROSCIENCE SPECIALIST: None : None, Frequency HEENT: Chronic vision loss, Chronic hearing loss, Other Psych: Depression, Anxiety, Panic attacks, Post traumatic stress disorder, Claustrophobia Musculoskeletal: Chronic back pain - Past Surgical History Past Surgical History: Yes General: Colonoscopy Ortho: Spine surgery HEENT: Myringotomy (tubes), Tonsil/Adenoidectomy - Present Medications Home Medications: Ambulatory Orders Medication Instructions Recorded Confirmed Fluticasone [Flonase] 1 sprays CLAUDE BID 05/16/15 05/28/17 Fluticasone/Salmeterol 250/50 1 puffs NS DAILY 05/16/15 05/28/17 [Advair 250 Mcg/50 Mcg] Omeprazole [PriLOSEC] 20 mg PO DAILY 05/16/15 05/28/17 RX: Albuterol [Ventolin Hfa] 1 puffs PO DAILY PRN 05/16/15 05/28/17 Beclomethasone 40 Mcg [Qvar 40] 1 puffs PO DAILY PRN 11/02/16 05/28/17 Meloxicam [Mobic] 7.5 mg PO BID 11/02/16 05/28/17 Multivit with Calcium,Iron,Min 1 each PO DAILY 11/03/16 05/28/17 [Multiple Vitamins For Women] [place]-3S/Dha/Epa/Fish Oil [Fish 1 each PO DAILY 11/03/16 05/28/17 Oil 1,200 mg Softgel] Medical Marjiuana 03/14/17 Methocarbamol [Robaxin] 500 mg PO Q6H PRN #25 tablet 03/14/17 05/28/17 RX: Magnesium 250 mg PO DAILY 03/14/17 05/28/17 Paliperidone [Invega] 1 tab PO DAILY 05/28/17 05/28/17 RX: Clotrimazole 3 drops RIGHTEAR QID #10 ml 05/28/17 RX: Sulfacetm Na/Prednisol AC 3 drops RIGHTEAR QID #1 bottle 05/28/17 [Blephamide Eye Drops] RX: Tramadol HCl 50 mg PO Q6H PRN #15 tablet 05/28/17 Sulfamethox/Trimeth 800/160 1 each PO BID #14 tablet 05/28/17 [Bactrim Ds 800/160] Methocarbamol [Robaxin] 750 mg PO Q6H PRN #25 tablet 07/26/18 RX: Oxycodone HCl 1 - 2 tab PO Q8HR PRN #25 tablet 07/26/18 dexAMETHasone [Decadron] 4 mg PO DAILY #6 tablet 07/26/18 Cephalexin [Keflex] 500 mg PO Q6H #28 capsule 10/06/18 Ciproflox/Dexameth Otic Drops 4 drops OT BID #1 bottle 10/06/18 [Ciprodex] RX: Indomethacin 25 mg PO BID PRN #10 capsule 02/01/19 - Allergies Allergies/Adverse Reactions: Allergies Allergy/AdvReac Type Severity Reaction Status Date / Time amoxicillin trihydrate * Allergy Hives Verified 02/01/19 18:13 [From Augmentin] bupropion HCl * Allergy Hives Verified 02/01/19 18:13 [From Wellbutrin] carbamazepine [From Tegretol] Allergy Hives Verified 02/01/19 18:13 ciprofloxacin [From Cipro] Allergy Emesis Verified 02/01/19 18:13 ciprofloxacin HCl * Allergy Emesis Verified 02/01/19 18:13 [From Cipro] erythromycin base Allergy Hives Verified 02/01/19 18:13 minocycline HCl * Allergy Nausea Verified 02/01/19 18:13 [From Solodyn] potassium clavulanate * Allergy Hives Verified 02/01/19 18:13 [From Augmentin] soldak Allergy Unknown Uncoded 02/01/19 18:13 - Social History Does the pt smoke?: Yes Smoking Status: Current every day smoker Does the pt drink ETOH?: No Does the pt have substance abuse?: No - Immunizations Immunizations are current?: Yes - POLST Patient has POLST: No PD ED PE NORMAL - Vitals Vital signs reviewed: Yes - General General: Alert and oriented X 3, No acute distress, Well developed/nourished - HEENT HEENT: Atraumatic, Moist mucous membranes - Cardiac Cardiac: Strong equal pulses - Respiratory Respiratory: No respiratory distress - Derm Derm: Normal color, Warm and dry, No rash - Extremities Extremities: No deformity, No tenderness to palpate, Normal ROM s pain, No edema, Other (No varus/valgus strain, anterior/posterior drawer test or other laxity to right knee on exam.) - Neuro Neuro: Alert and oriented X 3, No motor deficit, No sensory deficit, Other (No objective changes in range of motion or strength to right lower extremity.) - Psych Psych: Normal mood, Normal affect Results - Vitals Vitals: Vital Signs - 24 hr 02/01/19 02/01/19 18:09 20:36 Temperature 36.4 C L 36.0 C L Heart Rate 102 H 77 Respiratory 18 18 Rate Blood Pressure 144/80 H 130/81 H O2 Saturation 98 100 Oxygen O2 Source Room air PD MEDICAL DECISION MAKING - ED course Complexity details: reviewed results, re-evaluated patient, considered differential, d/w patient ED course: Patient presenting with diffuse right lower extremity pain initially exacerbated by a traumatic incident, although patient did not injure the right leg specifically. Patient seems to be more painful in the right knee. Objectively, do not find signs to indicate DVT, cellulitis, abscess, joint infection, gout or other trauma. Have low suspicion for dislocation or fracture, but offered x- rays, which returned unremarkable except for degenerative changes. Did discuss other etiologies such as Ragland's cyst, as well as meniscus or ligamentous injury to the right knee. At this time, given patient's balance issues at baseline and she walks with a cane and other, abilities, do not feel she would highly benefit from immobilization or nonweightbearing status at this time. Recommended follow-up with orthopedic surgery and supportive cares in the interim. Specifically, patient is requesting indomethacin and discussed other better alternatives such as ibuprofen, Tylenol, but patient feels that indomethacin works well for her and gave prescription for small amount to address inflammation issues. Patient otherwise voiced understanding and comfortable with discharge plan. Departure - Departure Disposition: 01 Home, Self Care Clinical Impression: Pain in extremity Condition: Good Instructions: ED Acute Pain [facility] Follow-Up: Sunitha Mcfarlane DO [Primary Care Provider] - Within 3 Days Sanju Puente MD [Provider Admit Priv/Credential] - Within 3 Days Prescriptions: RX: Indomethacin 25 mg PO BID PRN #10 capsule PRN Reason: Pain Comments: Please continue home medications as previously instructed. Recommend medication such as ibuprofen/Tylenol, as well as ice application to areas of swelling, elevation, massage, stretching. Follow-up with your primary care physician and/or orthopedic surgery as needed in the next 2 to 3 days. Given your request for indomethacin, prescription provided. Please use this as prescribed and do not combine with other anti-inflammatories such as ibuprofen as this could be damaging to your kidneys. Return to ED sooner if experience worsening symptoms or have other concerns. Discharge Date/Time: 02/01/19 20:43
[2019-02-01] MEDS ORDERED: KETOROLAC 60 MG/2 ML VIAL IM STA (18:34)
--- NOTE | 2019-02-01 19:52 | XRAY Report ---
Reason: right knee posterior pain Procedure Date: 02/01/2019 Accession Number: [id number] / [id number] Procedure: XR - Knee 4 View RT CPT Code: FULL RESULT: EXAM: RIGHT KNEE RADIOGRAPHY EXAM DATE: 02/01/2019 07:27 PM. CLINICAL HISTORY: Right knee posterior pain. COMPARISON: None. TECHNIQUE: 4 views. FINDINGS: Bones: There is mild to moderate chronic spurring of the lateral tibial plateau and lateral femoral condyle. No fracture or destructive bone lesion. Joints: Satisfactory alignment. No joint effusion. Soft Tissues: Normal. No soft tissue swelling. IMPRESSION: 1. Degenerative disease of the lateral knee. No fracture or joint effusion. RADIA
[2019-02-01 20:36] VITALS: BP 130/81
== END 2019-02-01 20:43 | disposition home or self-care (01) ==
LOC: ED 18:07
DX: M79.604 Pain in right leg (principal); I10 Essential (primary) hypertension; F17.200 Nicotine dependence, unspecified, uncomplicated
CPT/HCPCS: 96372; 99283; 99284

== ENCOUNTER 2019-03-16 02:15 | Outpatient (CLI) | payer MEDICARE, MEDICAID | END 2019-03-16 02:16 | disposition short-term general hospital (02) | LOC: EMS 02:15 | PROVIDERS: ATTEND Surgery | DX: M25.562 Pain in left knee (principal); M25.561 Pain in right knee | CPT/HCPCS: A0425; A0429; A0888 ==

== ENCOUNTER 2019-06-10 08:49 | Outpatient (CLI) | payer MEDICARE, MEDICAID ==
--- NOTE | 2019-06-10 09:49 | SLEEP CARE CONSULTATION ---
Information from patient questionnaire entered by Barbie Mejia. I have reviewed and concur with the information entered by Barbie Mejia. This document represents the service I personally performed and the decisions made by me, Eufemia Parker, RN, MSN, COSTUMING SUPERVISOR. History of Present Illness Previous diagnosis: Moderate, Obstructive Sleep Apnea-Hypopnea Syndrome AHI: 19.9 Reason for follow up: six month Equipment type: CPAP Equipment obtained from: [facility] (has not tried to get equipment as told to come in here last time there.) Mask style: Nasal pillows Mask brand: Respironics Backup mask available: Yes Last cushion change: a few months ago- alternates sizes to check fit CPAP Compliance Data - Data Reviewed with Patient Average duration of nightly device use: 4.4 Compliance rate %: 46.7 (30 days) (41.7 for 180 days) Current pressure setting (cmH2O): 6 Humidity settin Heated hose settin Average residual AHI: 3.7 Average large leak: 2 min 36 sec Subjective Patient concerns: reports: mask discomfort (hard to put on with shoulder pain an d carpal tunnel ), air blowing in eyes (sits too close to eyes ), condensation in mask/hose (in nasal piece. - does not use water in humidifier ). denies: aerophagia, mask leak noise, nasal congestion, dry mouth, nose, throat, epistaxis, other Observed to snore while using device: No Current pressure setting perceived as: comfortable On therapy, patient: reports: sleeping better, more rested overall. denies: awakening more refreshed (because of pain), drowsiness while driving (uses paratransit) Initial Saint Francis Sleepiness Scale score: 5 Current [place] Francis Sleepiness Scale score: 11 Allergies and Home Medications Known drug allergies: Yes Home medication list reviewed: Yes Allergy and home medication list: Abilify 5mg tab one daily Benzotripine Mesylate 0.5mg tab one twice daily Albuterol HFA 110 mcg/act inh. aerosol One puff twice daily as needed Lamotrigine 200mg tab one daily at bedtime Methocarbamol 500mg tab one twice daily Sumatriptan Succinate 50mg tab - 1 as needed for headache Ventolin HFA 108 (90 base) Two puffs daily as needed Fluticasone Propionate 50 mcg/act Nasal One spray each nostril twice daily, prn mobic 15 mg daily Allergy List Augmentin Tegretol Sulindac Cipro Codeine Sulfate Topamax Wellbutrin Review of Systems Review of systems same as previous: No (repair of left carpal tunnel ) Physical Exam Blood Pressure: 124/70 Cuff size: long Heart Rate: 96 O2 Saturation: 98 Height: 4 ft 8.5 in Weight: 213 lb 3.2 oz (gained back weight) Body Mass Index: 46.9 BMI Classification: Obesity Class 3 Impression and Plan 1. Obstructive Sleep Apnea-Hypopnea Syndrome, moderate, with fair treatment compliance and good apnea control. On CPAP therapy, the patient has better sleep quality and is more rested overall. For her mask concerns, I ordered a mask refitting. She would like to try the Dreamwear nasal mask again as easier to put on with current shoulder discomfort and bilateral carpal tunnel syndrome. This mask style also sits lower below eyes which is more comfortable for her. However it would dislodge in sleep, so the headgear adaptor was also ordered. To reduce condensation in her nasal mask piece, she is to try a higher hose setting. I again reviewed compliance guidelines. However, the ultimate goal is to use CPAP with all sleep for maximum benefit of treatment. She has regained weight lost the past year and we discussed how weight affects her apnea / CPAP pressure. She is advised to lose weight and states she is currently modifying diet to also be anti inflammatory to reduce pain. In addition, I praised her smoking cessation of 8 days. Patient's apnea severity and rationale for treatment to reduce apnea, improve sleep quality and reduce cardiovascular and cerebrovascular events was reviewed. I also reviewed the benefit of consistent device use of CPAP for hypertension, gastric reflux, depression/anxiety. * Continue CPAP pressure at 6 cmH2O * mask refitting * adjust heated hose * Notify me if snoring with mask or feeling that the pressure is too much or too little * Attempt to lose weight * Return for follow up in 2 months , or sooner if concerns arise I spent 100% of this 25 minute visit face to face with the patient with greater than 50% of this was spent time counseling the patient and coordination of care.
[2019-06-10 09:50] VITALS: BP 124/70
== END 2019-06-10 08:50 | disposition home or self-care (01) ==
LOC: SC 08:49
PROVIDERS: ATTEND Nurse Practitioner Family
DX: G47.33 Obstructive sleep apnea (adult) (pediatric) (principal); E66.9 Obesity, unspecified; Z68.42 Body mass index [BMI] 45.0-49.9, adult
CPT/HCPCS: 99214; G0463; 99212

== ENCOUNTER 2020-02-05 13:42 | Outpatient (CLI) | payer MEDICARE, MEDICAID ==
--- NOTE | 2020-02-05 15:01 | SLEEP CARE CONSULTATION ---
Information from patient questionnaire entered by Barbie Mejia. I have reviewed and concur with the information entered by Barbie Mejia. This document represents the service I personally performed and the decisions made by me, Eufemia Parker, RN, MSN, CEMENT AND CONCRETE PLANT WORKER. History of Present Illness Service Date and Time: 02/05/2020 1342 Previous diagnosis: Moderate, Obstructive Sleep Apnea-Hypopnea Syndrome AHI: 19.9 (in 2013) Reason for follow up: other (5 month) Equipment type: CPAP Equipment obtained from: [facility] [place] [facility] [place] (not getting supplies due to yelling of staff to patient / incorrect supplies obtained when receives) Mask style: Nasal Backup mask available: Yes (old mask ) Last cushion change: a couple months Prior sleep studies: Yes Year and Where: 2013 - [facility] Type of Sleep Study: Polysomnography CPAP Compliance Data - Data Reviewed with Patient Compliance rate %: 49 Current pressure setting (cmH2O): 6 Humidity setting: off - no water Heated hose setting: off Average residual AHI: 4.1 Average large leak: 1 minute Subjective Patient concerns: reports: air blowing in eyes (wakes her nightly 1-2 times adjusts mask), mask leak noise (occasional ), nasal congestion, dry mouth, nose, throat (dryness of nose - ), epistaxis (using neosporin to cover scabs from dryness), other (whistling in hose noted ). denies: aerophagia, mask discomfort, condensation in mask/hose Observed to snore while using device: No Current pressure setting perceived as: comfortable On therapy, patient: reports: sleeping better (except for pain of back and knees, fibromyalgia - weight consultation for prep for knee surgery ) Initial Thoreau Sleepiness Scale score: 5 (in 2014) Allergies and Home Medications Known drug allergies: Yes (see list ) Home medication list reviewed: No (pateint will call in medication changes ) Review of Systems Review of systems same as previous: Yes (continues to have pain and in evaluation for knee surgery and back treatmen) Physical Exam Blood Pressure: 130/80 Cuff size: long Heart Rate: 80 O2 Saturation: 98 Height: 4 ft 8.5 in Weight: 227 lb Body Mass Index: 50.0 BMI Classification: Morbidly Obese Impression and Plan 1. Obstructive Sleep Apnea-Hypopnea Syndrome,moderate , with fair treatment compliance and good apnea control. On CPAP therapy, the patient has better sleep quality and is more rested overall. Nasal dryness can be reduced with increasing the CPAP humidity, however, she is unable to due to condensation. Thus gave her a sample of saline nasal spray to use prior to CPAP In addition, I gave the patient a few samples of Akin Ease nasal cream to be used 4 times a day for 7-10 days and then as needed. Information given about the product and how to obtain more. She was also encouraged to rest after lunch with CPAP for pain management. This will also help her meet her compliance goals and assist restfulness as her sleep is fragmented due to pain and is not always able to sleep much. Meeting c ompliance will assist her to update her device and transfer to another DME if continues to have difficulty getting supplies. Patient's apnea severity and rationale for treatment to reduce apnea, improve sleep quality and reduce cardiovascular and cerebrovascular events was reviewed. * Continue auto CPAP pressure at 6 cmH2O * Implement methods to reduce nasal dryness * Notify me if snoring with mask or feeling that the pressure is too much or too little * Attempt to lose weight * Incorporate rest time mid day * Call this office if any problems using CPAP * Return for follow up in 1-2 months , or sooner if concerns arise Visit Type: In Office Time Spent with Patient (minutes): 20 Provider Statement: I spent 100% of the Face to Face Visit with the patient with greater than 50% spent counseling the patient and coordination of care.
[2020-02-05 15:02] VITALS: BP 130/80
== END 2020-02-05 13:43 | disposition home or self-care (01) ==
LOC: SC 13:42
PROVIDERS: ATTEND Nurse Practitioner Family
DX: G47.33 Obstructive sleep apnea (adult) (pediatric) (principal); E66.01 Morbid (severe) obesity due to excess calories; Z68.43 Body mass index [BMI] 50.0-59.9, adult
CPT/HCPCS: 99213; G0463; 99212

== ENCOUNTER 2020-04-08 13:51 | Outpatient (CLI) | payer MEDICARE, MEDICAID ==
[2020-04-08 15:24] VITALS: BP 124/84
--- NOTE | 2020-04-08 15:24 | SLEEP CARE CONSULTATION ---
Information from patient questionnaire entered by Barbie Mejia. I have reviewed and concur with the information entered by Barbie Mejia. This document represents the service I personally performed and the decisions made by me, Eufemia Parker, RN, MSN, CHARRER. History of Present Illness Service Date and Time: 04/08/2020 1351 Previous diagnosis: Moderate, Obstructive Sleep Apnea-Hypopnea Syndrome AHI: 19.9 (in 2013) Reason for follow up: other (2 month with nasal dryness) Equipment type: CPAP Equipment obtained from: [facility] (not getting supplies due to yelling of staff to patient / incorrect supplies obtained when receives) Mask style: Nasal Backup mask available: No (keep current mask ) Last cushion change: last mask change at last visit prior to [facility]. Prior sleep studies: Yes Year and Where: 2013 - [facility] Type of Sleep Study: Polysomnography Sleep Study - Results Prior sleep studies: Yes Year and Where: 2013 - [facility] CPAP Compliance Data - Data Reviewed with Patient Average duration of nightly device use: 6.5 Compliance rate %: 70 (the past 30 days) Current pressure setting (cmH2O): 6 Humidity settin Heated hose settin Average residual AHI: 4.7 Average large leak: 6 min 46 sec Subjective Missed days of use due to: reports: mask issues, travel Patient concerns: reports: air blowing in eyes (when sleeps on her side), nasal congestion (allergies and uses saline nasal spray to clear nose. ), dry mouth, nose, throat (dry nose ), other (The machine is starting to make whistling noise and over 5 years old ). denies: aerophagia, mask discomfort, mask leak noise, condensation in mask/hose, epistaxis Current pressure setting perceived as: comfortable (if uses ramp if initiation) On therapy, patient: reports: sleeping better, awakening more refreshed, being more awake and alert during the day, more rested overall. denies: drowsiness while driving (does not drive ) Initial [place] Sleepiness Scale score: 5 (in 2013) Current [place] Sleepiness Scale score: 12 Allergies and Home Medications Known drug allergies: Yes Home medication list reviewed: Yes (see changes below ) Allergy and home medication list: Added Chantix po bid Xyzol po 10 mg daily for allergies Dose change: methotrexate increased to 6 tabs bid weekly Fluoxetine increased to 40mg daily methocarbonol 750mg TID Tylenol 500mg TID Magnesium Zinc Calcium 500mg daily Naproxen increased to 2 bid omeprazole 40mg daily Review of Systems Review of systems same as previous: No (Bariatric referral and process started / stopped smoking) Physical Exam Blood Pressure: 124/84 Cuff size: long Heart Rate: 76 O2 Saturation: 96 Height: 4 ft 8.5 in Weight: 218 lb 6.4 oz Weight change since last visit: lost 12 pounds Body Mass Index: 48.1 BMI Classification: Morbidly Obese Impression and Plan 1. Obstructive Sleep Apnea-Hypopnea Syndrome, moderate , with good treatment compliance and good apnea control. On CPAP therapy, the patient has better sleep quality and is more rested overall. Patient's compliance has improved from 49% to 70%. She continues to have difficulty getting supplies. For patient supply concerns. Patient was notified that another DME can be used. I will have my dispatch coordinator inform of DME options. A DWO prescription will then be made. Patient advised to contact this office if further supply problems. The patients CPAP is over 5 years old and of reasonable use. In addition, it is starting to make louder whistling noise, a sign of malfunction. Thus, the CPAP will be updated. The new CPAPs also have a better humidity system which could assist control of patients dryness symptoms. Currently she is unable to use humidity due to condensation. She is advised to use her saline nasal spray in morning and at bedtime to reduce nasal dryness until new device. At that time a mask refitting will also be done to reduce mask leaks when she sleeps on her side. Her budget cannot afford a CPAP pillow at this time. A DWO prescription will be made. Compliance guidelines for new device and follow up discussed. Patient's apnea severity and rationale for treatment to reduce apnea, improve sleep quality and reduce cardiovascular and cerebrovascular events was reviewed. I also reviewed the benefit of consistent device use of CPAP for depression/anxiety, . * Continue CPAP pressure at 6 cmH2O * Update CPAP * Transfer to new DME * Implement methods to reduce nasal dryness and mask leaks * Mask refitting * Notify me if snoring with mask or feeling that the pressure is too much or too little * Continue to lose weight * Call this office if any problems using CPAP * Return for follow up in 1 month after new CPAP , or sooner if concerns arise Visit Type: In Office Time Spent with Patient (minutes): 40 Provider Statement: I spent 100% of the Face to Face Visit with the patient with greater than 50% spent counseling the patient and coordination of care.
== END 2020-04-08 13:52 | disposition home or self-care (01) ==
LOC: SC 13:51
PROVIDERS: ATTEND Nurse Practitioner Family
DX: G47.33 Obstructive sleep apnea (adult) (pediatric) (principal); E66.01 Morbid (severe) obesity due to excess calories; Z68.42 Body mass index [BMI] 45.0-49.9, adult
CPT/HCPCS: 99215; G0463; 99212

== ENCOUNTER 2020-07-24 16:38 | Outpatient (CLI) | payer MEDICARE, MEDICAID ==
--- NOTE | 2020-07-24 14:36 | SLEEP CARE CONSULTATION ---
Information from patient questionnaire entered by Barbie Mejia. I have reviewed and concur with the information entered by Barbie Mejia. This document represents the service I personally performed and the decisions made by me, Eufemia Parker, RN, MSN, [employer] W[employer]OW REPA[employer]ER. History of Present Illness Service Date and Time: 07/24/20201399 Previous diagnosis: Moderate, Obstructive Sleep Apnea-Hypopnea Syndrome AHI: 19.9 (in 2013) Reason for follow up: first compliance after device update Equipment type: CPAP Equipment obtained from: [employer] (no new supply replacements) Mask style: Nasal Backup mask available: Yes (old mask) Last cushion change: at set up Prior sleep studies: Yes Year and Where: 2013 - [facility] Type of Sleep Study: Polysomnography CPAP Compliance Data - Data Reviewed with Patient Average duration of nightly device use: 7 hr 11 min Compliance rate %: 73.3 Current pressure setting (cmH2O): 5-6 Humidity settin Heated hose settin Average residual AHI: 12.5 [place] apnea: 0.7 Obstructive apnea: 4.2 Hypopnea: 7.6 Average large leak: 10 min Subjective Patient concerns: reports: nasal congestion, other (intermittent nasal irritation with scabbing - uses neosporin or Akin Ease). denies: aerophagia, mask discomfort, air blowing in eyes, mask leak noise, condensation in mask/hose, dry mouth, nose, throat (rhinorrhea - watery eyes intermittently ), epistaxis Observed to snore while using device: No Current pressure setting perceived as: comfortable On therapy, patient: reports: sleeping better, awakening more refreshed, being more awake and alert during the day, more rested overall. denies: drowsiness while driving (does not drive ) Initial [place] Sleepiness Scale score: 5 (in 2014) Current [place] Sleepiness Scale score: 4 Allergies and Home Medications Known drug allergies: Yes (see list ) Home medication list reviewed: No (no changes - stopped Chantrix and not smoking) Review of Systems Review of systems same as previous: No (bunion repair right foot NWB - recliner sleep) Physical Exam Height: 4 ft 8.5 in Weight: 223 lb (stable) Body Mass Index: 49.1 BMI Classification: Morbidly Obese Impression and Plan 1. Obstructive Sleep Apnea-Hypopnea Syndrome, moderate, with good treatment compliance and mild elevation of residual AHI. On CPAP therapy, the patient has better sleep quality and is more rested overall. The patients pressure will be changed to auto CPAP 6-8 cmH20 For elevation of residual AHI. It is unclear why there is an elevation as her weight is stable, no change in medications. Patient advised to contact me if pressure change is uncomfortable so that it can be adjusted. Ramp feature discussed. Her last years pressure was 6cmH20 on old device and residual AHI below 5. Perhaps the old device apnea monitoring system was inaccurate. Goals for apnea control discussed. For nasal irritation, she is to apply Akin Ease,vaseline or skin ointment barrier nightly before CPAP. In addition, she is to start use of saline nasal spray prior to CPAP as she does not like to use humidifier due to condensation problems in past with old machine. If skin irritation is due to dryness, she can consider restarting humidity with instruction from [facility]. If continued skin irritation and unable to heal, she was advised to follow up with PCP for further evaluation with rationale explained. Skin irritation can also be from need to change her mask cushion more frequently. Patient has not yet heard from [facility] for updating her supplies and advised to contact. Patient's apnea severity and rationale for treatment to reduce apnea, improve sleep quality and reduce cardiovascular and cerebrovascular events was reviewed. I also reviewed the benefit of consistent device use of CPAP for depression/anxiety, . * * Change auto CPAP pressure to 6-8 cmH2O * Notify me if snoring with mask or feeling that the pressure is too much or too little * Implement measures to reduce skin irritation. * Follow up with PCP if indicated. * Attempt to lose weight * Call this office if any problems using CPAP * Return for follow up in 1-2 months , or sooner if concerns arise Visit Type: Telehealth Video Video Type: BitAccess Patient Location: Home Other Participants: Sibling (brief introduction) Location of Provider: Home Patient agrees and consents to this telehealth visit type: Yes Patient agrees to have their insurance billed: Yes Time Spent with Patient (minutes): 30 Provider Statement: I spent 100% of the Telehealth Video Call with the patient with greater than 50% spent counseling the patient and coordination of care.
--- OUTSIDE RECORDS SUMMARY | 2020-07-29 01:45 | EXTERNAL MEDICAL SUMMARY RPT | Continuity of Care Document ---
:1965 Demographics Phone Unavailable Preferred Language Bruneian Marital Status Unknown Denominational Affiliation Unknown Race Unknown Ethnic Group Unknown Author Organization [facility] Address [address] [place] [address] Phone Care Team Providers Name Role Phone JOHNSON Unavailable Unavailable Johnson Unavailable Unavailable Problems date description facility [facility] Current some day smoker [facility]) [facility] Allergies date description facility EZETIMIBE [facility] LATEX [facility] PENICILLINS [facility] SULFA (SULFONAMIDE ANTIBIOTICS) [facility] [id number] [facility] Medications date description facility 2020-05-22 00:00:00 [facility] 2020-05-22 00:00:00 Fluticasone propionate 0.25 MG/ACTUAT / [facility] salmeterol 0.05 MG/ACTUAT Dry Powder Inh aler 2020-05-22 00:00:00 [facility] 2020-05-22 00:00:00 [facility] 2020-05-29 00:00:00 Baclofen 10 MG Oral Tablet [facility] 2020-05-29 00:00:00 tolterodine tartrate 2 MG Oral Tablet [facility] 2020-06-05 00:00:00 gabapentin 400 MG Oral Capsule [facility] 2020-06-26 00:00:00 buspirone hydrochloride 10 MG Oral Tab let [facility] 2020-07-15 00:00:00 Baclofen 10 MG Oral Tablet [facility] Procedures date description facility 2020-05-22 00:00:00 [facility] date description facility 2020-05-26 00:00:00 [facility] date description facility 2020-05-26 00:00:00 [facility] date description facility 2020-05-26 00:00:00 [facility] date description facility 2020-05-26 00:00:00 [facility] date description facility 2020-06-30 00:00:00 [facility] date description facility 2020-06-30 00:00:00 [facility] date description facility 2020-06-30 00:00:00 [facility] date description facility 2020-06-30 00:00:00 [facility] date description facility 2020-06-30 00:00:00 [facility] date description facility 2020-07-16 00:00:00 Diagnosis [facility] date description facility 2020-07-16 00:00:00 Finding [facility] date description facility 2020-07-16 00:00:00 [facility] date description facility 2020-07-16 00:00:00 [facility] date description facility 2020-07-16 00:00:00 [facility] date description facility 2020-07-22 00:00:00 [facility] Results test status date ordered by attending specimen nikole e null F ELPIDIO Johnson 2020-05-22 12:33:00 null F ELPIDIO Johnson 2020-05-22 12:33:00 null F ELPIDIO Johnson 2020-05-22 12:33:00 null F ELPIDIO Johnson 2020-05-22 12:33:00 null F ELPIDIO Johnson 2020-05-22 12:33:00 null F ELPIDIO Johnson 2020-05-22 12:33:00 facility observation status value reference units lab abnor mal line notes range code [place] F Comment . [facility] QuantiF NICOLE- TB Gold Plus result i s determin ed by subtract ing the Nil value fr om either T B antigen (Ag) tube. The mitogen tube serves a s a control for the test . [place] F 0.11 . IU/mL N [facility] F 0.09 . IU/mL N [facility] F 0.12 . IU/mL N [facility] F >10.00 . IU/mL N [facility] F Negative Negative N The specimen Hospital receive d for QuantiFE CAN testing was incubate d by the ordering institut ion. Specifi c procedur es outlined in our Director y of Services and in the package insert f or the QuantiFE CAN Gold (In Tube) te st must be followed to enable for proper stimulat ion of cells for the producti on of interfer on gamma. Performe d at: SE - [facility] [address] [id number] Print Binding And Finishing Worker : Foreign Love MD, Phone: [phone] Social History date description facility [id number] Current some day smoker [facility] date description facility + Ex-smoker (finding) [facility] Social History date description facility + Current some day smoker [facility] date description facility + Ex-smoker (finding) [facility] date description facility +0000
== END 2020-07-24 16:39 | disposition home or self-care (01) ==
LOC: SC 16:38
PROVIDERS: ATTEND Nurse Practitioner Family
DX: G47.33 Obstructive sleep apnea (adult) (pediatric) (principal); E66.01 Morbid (severe) obesity due to excess calories; Z68.42 Body mass index [BMI] 45.0-49.9, adult

== ENCOUNTER 2020-08-26 11:25 | Outpatient (CLI) | payer MEDICAID, MEDICARE ==
--- NOTE | 2020-08-26 11:48 | SLEEP CARE CONSULTATION ---
Information from patient questionnaire entered by Barbie Mejia. I have reviewed and concur with the information entered by Barbie Mejia. This document represents the service I personally performed and the decisions made by , Daya Zaman ARNP. History of Present Illness Service Date and Time: 08/26/2020 1125 Previous diagnosis: Moderate, Obstructive Sleep Apnea-Hypopnea Syndrome AHI: 19.9 (in 2013) Reason for follow up: other (2 month with pressure change, transfer DME) Equipment type: CPAP Equipment obtained from: [facility] (no new supply replacements; needs to send the machine back to them due to insurance change) Mask style: Nasal Backup mask available: Yes (old mask) Prior sleep studies: Yes Year and Where: 2013 - [facility] Type of Sleep Study: Polysomnography HPI additional information: ROGERIO GRIGGS was diagnosed to have moderate, AHI 19.9, obstructive sleep apnea- hypopnea syndrome and returned today for CPAP therapy two month pressure change, needs new DME follow-up. CPAP Compliance Data - Data Reviewed with Patient Average duration of nightly device use: 7 hr 38 min Compliance rate %: 78.3 (60 days) Current pressure setting (cmH2O): 6-8 (mean 6.4, avg 7.3, max 7.8) Humidity settin Heated hose settin Average residual AHI: 9.5 Average large leak: 10 min 24 sec Subjective Patient concerns: reports: condensation in mask/hose (has turned off the humidity), dry mouth, nose, throat (dry nose on left side). denies: aerophagia, mask discomfort, air blowing in eyes, mask leak noise, nasal congestion, epistaxis, other Observed to snore while using device: No Current pressure setting perceived as: too low (some times feels pressure is too much when she wakes up but when she starts machine it feels low) On therapy, patient: reports: sleeping better, awakening more refreshed, being more awake and alert during the day, more rested overall. denies: drowsiness while driving Initial [place] Sleepiness Scale score: 5 (in 2013) Allergies and Home Medications Home medication list reviewed: Yes (no changes) Review of Systems Review of systems same as previous: Yes (no changes) Physical Exam Vital signs obtained and entered by: Telehealth visit to reduce exposure during Covid pandemic Height: 4 ft 8.5 in Impression and Plan 1. Obstructive Sleep Apnea-Hypopnea Syndrome, moderate, with fair treatment compliance and fair apnea control with elevated residual AHI. On CPAP therapy, the patient has better sleep quality and is more rested overall. The patients pressure will be changed to autoCPAP 7-9 cmH20 for elevation of residual AHI. Patient advised to contact me if pressure change is uncomfortable so that it can be adjusted. Goals for apnea control discussed. Patient has had an insurance change and [facility] cannot get her supplies anymore and has requested she return the CPAP machine. Patient was informed that another DME can be used. I will have my college scouting coordinator inform of DME options. A DWO prescription will then be made. Patient advised to contact this office if further supply problems. Patient's apnea severity and rationale for treatment to reduce apnea, improve sleep quality and reduce cardiovascular and cerebrovascular events was reviewed. I also reviewed the benefit of consistent device use of CPAP for depression /anxiety. * Transfer DME and get new machine * Change auto CPAP pressure to 7-9 cmH2O * Notify me if snoring with mask or feeling that the pressure is too much or too little * Attempt to lose weight * Call this office if any problems using CPAP * Return for follow up after obtains new machine, or sooner if concerns arise Counseling Topics: Spare mask Visit Type: Telehealth Video Video Type: VSee Patient Location: Home Location of Provider: Office Patient agrees and consents to this telehealth visit type: Yes Patient agrees to have their insurance billed: Yes Time Spent with Patient (minutes): 29 Provider Statement: I spent 100% of the Telehealth Video Call with the patient with greater than 50% spent counseling the patient and coordination of care.
== END 2020-08-26 11:26 | disposition home or self-care (01) ==
LOC: SC 11:25
PROVIDERS: ATTEND Nurse Practitioner Family
DX: G47.33 Obstructive sleep apnea (adult) (pediatric) (principal)

== ENCOUNTER 2020-10-14 11:20 | Outpatient (CLI) | payer MEDICARE ==
--- NOTE | 2020-10-14 11:44 | SLEEP CARE CONSULTATION ---
Information from patient questionnaire entered by Barbie Mejia. I have reviewed and concur with the information entered by Barbie Mejia. This document represents the service I personally performed and the decisions made by , Daya Zaman ARNP. History of Present Illness Service Date and Time: 10/14/2020 1120 Previous diagnosis: Moderate, Obstructive Sleep Apnea-Hypopnea Syndrome AHI: 19.9 (in 2013) Reason for follow up: first compliance after device update Equipment type: CPAP Equipment obtained from: [facility] (getting supplies as needed) Mask style: Nasal Backup mask available: Yes (old mask) Last cushion change: 1 month Prior sleep studies: Yes Year and Where: 2013 - [facility] Type of Sleep Study: Polysomnography HPI additional information: ROGERIO GRIGGS was diagnosed to have moderate, AHI 19.9, obstructive sleep apnea- hypopnea syndrome and returns via Telehealth visit today for CPAP therapy first compliance after updating device follow-up. CPAP Compliance Data - Data Reviewed with Patient Average duration of nightly device use: 5 hr 35 min Compliance rate %: 60 Current pressure setting (cmH2O): 7-9 Humidity settin Heated hose settin Average residual AHI: 2.9 Average large leak: 5 min 24 sec Subjective Patient concerns: reports: mask leak noise (once in a while), condensation in mask/hose (occasionally, not using humidity on machine), nasal congestion (due to allergies, using Flonase), dry mouth, nose, throat (not often). denies: aerophagia, mask discomfort, air blowing in eyes, epistaxis, other Observed to snore while using device: No Current pressure setting perceived as: comfortable On therapy, patient: reports: sleeping better, awakening more refreshed, being more awake and alert during the day, more rested overall. denies: drowsiness while driving Initial [place] Sleepiness Scale score: 5 (in 2013) Current [place] Sleepiness Scale score: 5 Allergies and Home Medications Home medication list reviewed: Yes (Halley twice a month) Review of Systems Review of systems same as previous: Yes (no changes) Physical Exam Vital signs obtained and entered by: Telehealth visit to reduce exposure during Covid pandemic Height: 4 ft 8.5 in Impression and Plan 1. Obstructive Sleep Apnea-Hypopnea Syndrome, moderate, with fair treatment compliance and good apnea control. On CPAP therapy, the patient has better sleep quality and is more rested overall. She is getting more comfortable in the new nasal mask with occasional mask leak noises. She states she gets some condensation in the mask occasionally even with the humidity shut off. Once in a while she gets some mouth dryness but this is rare. Her compliance is at 60% for the last 30 days. She has fallen asleep without her machine on or takes it off due to nightly pain/discomfort. Compliance guidelines reviewed for insurance coverage. Patient was counseled on the difference between meeting compliance and optimal use of CPAP. Optimal use of CPAP is use of CPAP with all sleep to obtain maximum benefit of treatment. Patient is encouraged to use CPAP with all sleep. To prevent falling asleep without CPAP, patient advised to set a bedtime alarm on their phone for use while watching TV on couch or in bed. She will follow up in a month to recheck compliance. Patient's apnea severity and rationale for treatment to reduce apnea, improve sleep quality and reduce cardiovascular and cerebrovascular events was reviewed. I also reviewed the benefit of consistent device use of CPAP for depression/anxiety. * Continue autoCPAP pressure at 7-9 cmH2O * Notify me if snoring with mask or feeling that the pressure is too much or too little * Attempt to lose weight * Call this office if any problems using CPAP * Return for follow up in 1 month to recheck compliance, or sooner if concerns arise Counseling Topics: Spare mask, Weight loss health impact Visit Type: Telehealth Video Video Type: VSee Patient Location: Home Location of Provider: Office Patient agrees and consents to this telehealth visit type: Yes Patient agrees to have their insurance billed: Yes Time Spent with Patient (minutes): 20 Provider Statement: I spent 100% of the Telehealth Video Call with the patient with greater than 50% spent counseling the patient and coordination of care.
--- OUTSIDE RECORDS SUMMARY | 2020-10-20 23:47 | EXTERNAL MEDICAL SUMMARY RPT | Continuity of Care Document ---
:1965 Demographics Phone Unavailable Preferred Language Sami Marital Status Unknown Sabianism Affiliation Unknown Race Unknown Ethnic Group Unknown Author Organization [facility] Address [address] [place] [address] Phone Care Team Providers Name Role Phone Johnson Unavailable Unavailable Johnson Unavailable Unavailable Problems date description facility [id number] Bipolar disorder, unspecified [facility] [id number] [id number], right ear [facility] [id number] Unspecified acute noninfective otitis e xterna, right [facility] ear [id number] Unspecified hearing loss, right ear [facility] [id number] Mastodynia [facility] [id number] Bipolar disorder, unspecified [facility] [id number] Post-traumatic stress disorder, [facility] Medications date description facility [id number] gabapentin 400 MG Oral Capsule [facility] [id number] tolterodine tartrate 2 MG Oral Tablet [facility] [id number] gabapentin 400 MG Oral Capsule [facility] [id number] 24 HR tolterodine tartrate 4 MG Extende d Release [facility] Capsule 79912941 buspirone hydrochloride 10 MG Oral Tabl et [facility] 85050082 Methocarbamol 750 MG Oral Tablet [facility] [id number] Naproxen 375 MG Oral Tablet [facility] [id number] Fluoxetine 40 MG Oral Capsule [facility] 84557136 Acetaminophen 500 MG Oral Tablet [facility] Procedures date description facility [id number] [facility] date description facility [id number] [facility] date description facility [id number] [facility] date description facility [id number] [facility] date description facility [id number] [facility] date description facility [id number] [facility] date description facility [id number] [facility] date description facility [id number] [facility] date description facility [id number] [facility] date description facility [id number] [facility] date description facility [id number] [facility] date description facility [id number] [facility] date description facility [id number] [facility] date description facility [id number] [facility] date description facility [id number] [facility] date description facility [id number] [facility] date description facility [id number] [facility] date description facility [id number] [facility] date description facility [id number] [facility] date description facility [id number] [facility] date description facility [id number] [facility] date description facility [id number] [facility] date description facility [id number] [facility] date description facility [id number] [facility] Vital Signs date measurement value source 20200722 BMI 49.4 kg/m2 20200722 BP_diastolic 70 mm[Hg] 20200722 BP_systolic 100 mm[Hg] 20200722 heart_rate 77 /min 20200722 height_metric 144.78 cm 20200722 height_standard 57 in 20200722 respiration_rate 16 /min 20200722 weight_metric 103.58 kg 20200722 weight_standard 228.35 lb date measurement value source 20200811 BMI 48.5 kg/m2 20200811 BP_diastolic 78 mm[Hg] 20200811 BP_systolic 124 mm[Hg] 20200811 heart_rate 65 /min 20200811 height_metric 144.78 cm 20200811 height_standard 57 in 20200811 respiration_rate 18 /min 20200811 weight_metric 46.13 kg 20200811 weight_standard 101.69 lb date measurement value source 20200819 BP_diastolic 72 mm[Hg] 20200819 BP_systolic 140 mm[Hg] 20200819 heart_rate 63 /min 20200819 height_metric 144.78 cm 20200819 height_standard 57 in 20200819 respiration_rate 16 /min 20200819 temperature_metric 36.44 C 20200819 temperature_standard 97.6 F date measurement value source 20201016 BMI 48.7 kg/m2 20201016 BP_diastolic 82 mm[Hg] 20201016 BP_systolic 128 mm[Hg] 20201016 heart_rate 67 /min 20201016 height_metric 144.78 cm 20201016 height_standard 57 in 20201016 respiration_rate 16 /min 20201016 weight_metric 46.34 kg 20201016 weight_standard 102.17 lb Social History date description facility [id number]
== END 2020-10-14 11:21 | disposition home or self-care (01) ==
LOC: SC 11:20
PROVIDERS: ATTEND Nurse Practitioner Family
DX: G47.33 Obstructive sleep apnea (adult) (pediatric) (principal)

== ENCOUNTER 2020-11-17 14:23 | Outpatient (CLI) | payer MEDICARE ==
--- NOTE | 2020-11-17 15:07 | SLEEP CARE CONSULTATION ---
Information from patient questionnaire entered by Terence Manzo. I have reviewed and concur with the information entered by Terence Manzo. This document represents the service I personally performed and the decisions made by me, Daya Zaman ARNP. History of Present Illness Service Date and Time: 11/17/2020 1423 Previous diagnosis: Moderate, Obstructive Sleep Apnea-Hypopnea Syndrome AHI: 19.9 (in 2013) Reason for follow up: one month Equipment type: CPAP Equipment obtained from: [employer] (getting supplies as needed) Mask style: Nasal Backup mask available: Yes (old mask) Last cushion change: 2 weeks Prior sleep studies: Yes Year and Where: 2013 - [facility] Type of Sleep Study: Polysomnography HPI additional information: ROGERIO GRIGGS was diagnosed to have moderate, AHI 19.9, obstructive sleep apnea- hypopnea syndrome and returned today for CPAP therapy one month follow-up. CPAP Compliance Data - Data Reviewed with Patient Average duration of nightly device use: 7 h 35 min Compliance rate %: 93.3 Current pressure setting (cmH2O): 7-9 Humidity settin Heated hose settin Average residual AHI: 4.3 Average large leak: 7 m 4 sec Subjective Missed days of use due to: reports: other (Falling asleep in my chair) Patient concerns: reports: mask leak noise, dry mouth, nose, throat (dry nose), epistaxis (on one side only, just crust of blood not flow). denies: aerophagia, mask discomfort, air blowing in eyes, condensation in mask/hose, nasal congestion, other Observed to snore while using device: No Current pressure setting perceived as: comfortable On therapy, patient: reports: sleeping better, awakening more refreshed, being more awake and alert during the day, more rested overall. denies: drowsiness while driving Initial [place] Sleepiness Scale score: 5 (in 2014) Current [place] Sleepiness Scale score: 7 Allergies and Home Medications Home medication list reviewed: Yes (on Humira) Review of Systems Review of systems same as previous: No (having bladder incontinence issues) Physical Exam Heart Rate: 61 O2 Saturation: 97 Height: 4 ft 8.5 in Weight: 223 lb Body Mass Index: 49.1 BMI Classification: Morbidly Obese Impression and Plan 1. Obstructive Sleep Apnea-Hypopnea Syndrome, moderate, with good treatment compliance and good apnea control. On CPAP therapy, the patient has better sleep quality and is more rested overall. She has had some nasal dryness with a sore in the left nare that bleeds and crusts daily. Nasal dryness can be reduced with increasing the CPAP humidity as shown on sample device and the heated hose can be increased if condensation. Patient does not like to use the humidity on her machine. In addition, I gave the patient a few samples of Akin Ease nasal cream to be used 4 times a day for 7-10 days and then as needed. She has reached compliance and we will follow up with her next year. Patient has been trying to follow a healthier diet and is maintaining her weight despite being limited due to knee pain and non-weight bearing after last surgery. Patient's apnea severity and rationale for treatment to reduce apnea, improve sleep quality and reduce cardiovascular and cerebrovascular events was reviewed. I also reviewed the benefit of consistent device use of CPAP for depression/anxiety. * Continue autoCPAP pressure at 7-9 cmH2O * Notify me if snoring with mask or feeling that the pressure is too much or too little * Continue to try to lose to lose weight * Call this office if any problems using CPAP * Return for follow up in 1 year, or sooner if concerns arise Counseling Topics: Spare mask, Weight loss health impact Visit Type: In Office Time Spent with Patient (minutes): 20 Provider Statement: I spent 100% of the Face to Face Visit with the patient with greater than 50% spent counseling the patient and coordination of care.
== END 2020-11-17 14:24 | disposition home or self-care (01) ==
LOC: SC 14:23
PROVIDERS: ATTEND Nurse Practitioner Family
DX: G47.33 Obstructive sleep apnea (adult) (pediatric) (principal); E66.01 Morbid (severe) obesity due to excess calories; Z68.42 Body mass index [BMI] 45.0-49.9, adult
CPT/HCPCS: 99213; G0463; 99212